=== PATIENT | female | born 1955 | race Caucasian/White ===

== ENCOUNTER → 2020-04-20 15:22 | Outpatient (CLI) | payer OTHER, SELFPAY ==
[2020-04-21 10:08] LABS: COVID19 Sendout Not Detected (Not Detect)
== END ==
PROVIDERS: Visit Provider Nurse Practitioner
DX: Z11.59 Encounter for screening for other viral diseases (principal)
CPT/HCPCS: 87635

== ENCOUNTER → 2022-02-14 12:41 | Outpatient (CLI) | payer MEDICARE, OTHER, SELFPAY | PROVIDERS: PCP Internal Medicine; Referring Provider Internal Medicine; Visit Provider Internal Medicine | DX: Z78.0 Asymptomatic menopausal state (principal); M85.89 Other specified disorders of bone density and structure, multiple sites | CPT/HCPCS: 77080 ==

== ENCOUNTER → 2022-03-01 17:34 | Outpatient (CLI) | payer MEDICARE, OTHER, SELFPAY ==
--- NOTE | 2022-03-01 | DI.RAD.S_ITS ---
PROCEDURE: XR ANKLE LT MIN 3V INDICATIONS: LEFT ANKLE PAIN TECHNIQUE: 3 views of the ankle were acquired. COMPARISON: None. FINDINGS: Bones: No fractures or dislocations. Ankle mortise is normally aligned. No suspicious bony lesions. Mild periarticular osteophyte formation at the tibiotalar joint. Soft tissues: No tibiotalar joint effusion. Achilles tendon appears normal. IMPRESSION: 1. Osteoarthritis. 2. No acute fracture. No osseous lesion. If symptoms and/or clinical suspicion for pathology persist, further assessment with repeat, or advanced imaging (e.g., CT, MRI, or bone scan) may be helpful for further assessment. Dictated by: Marko Hale M.D. on 03/02/2022 at 9:43 Approved by: Marko Hale M.D. on 03/02/2022 at 9:44
== END ==
PROVIDERS: PCP Internal Medicine; Referring Provider Internal Medicine; Visit Provider Internal Medicine
DX: M25.572 Pain in left ankle and joints of left foot (principal); M19.072 Primary osteoarthritis, left ankle and foot
CPT/HCPCS: 73610

== ENCOUNTER → 2022-03-17 11:16 | Outpatient (CLI) | payer MEDICARE, OTHER, SELFPAY ==
[2022-03-17 13:13] LABS: COVID19 -Nasal RAPID Negative (Negative)
== END ==
PROVIDERS: PCP Internal Medicine; Visit Provider Surgery
DX: Z20.822 Contact with and (suspected) exposure to COVID-19 (principal); Z01.812 Encounter for preprocedural laboratory examination
CPT/HCPCS: 87635; C9803

== ENCOUNTER 2022-03-20 13:10 | Day surgery (SDC) | payer MEDICARE, OTHER, SELFPAY ==
[2022-03-20 14:25] VITALS: BP 144/77; PULSE 52; RESP 16; TEMP 36.8; O2SAT 97; BMI 30.4
[2022-03-20] MEDS: SODIUM CHLORIDE 0.9% 1,000 ML 84 ML IV (14:35)
--- NOTE | 2022-03-20 14:46 | PM.HP.1 ---
History of Present Illness History of Present Illness Date Patient Seen: 03/20/22 Time Patient Seen: 14:46 Chief complaint: SDC Narrative: Dysphagia Patient History Family & Social History Social History: household members spouse Tobacco & Substance use: Smoking Status Never smoker alcohol intake current alcohol intake frequency 0-2 drinks per day Substance Use Type marijuana Meds Home Medications and Allergies Home Medications Medication Instructions Recorded Confirmed Type levothyroxine 50 mcg tablet 0.05 mg PO QDAY ##0 04/09/13 03/20/22 History (Synthroid) liothyronine 25 mcg tablet 25 mcg PO DAILY ##0 04/09/13 03/20/22 History (Cytomel) carbidopa 25 mg-levodopa 100 mg 25 - 100 tab PO Q4HR 03/20/22 03/20/22 History tablet carbidopa ER 25 mg-levodopa 100 mg 25 - 100 tab PO DAILY 03/20/22 03/20/22 History tablet,extended release entacapone 200 mg tablet 100 mg PO Q6HR 03/20/22 03/20/22 History rasagiline 1 mg tablet 1 mg PO DAILY 03/20/22 03/20/22 History Allergies Allergy/AdvReac Type Severity Reaction Status Date / Time No Known Drug Allergies Allergy Verified 03/20/22 14:07 Review of Systems Review of Systems ROS: Yes All systems reviewed with the patient and are negative except as otherwise documented Exam Vital Signs (past 8 hours): - 03/20/22 14:25 Temperature 98.3 F Pulse Rate 52 L Respiratory Rate 16 Blood Pressure 144/77 H Pulse Oximetry 97 Oxygen Delivery Method Room Air Oxygen Delivery Method Room Air Const General: cooperative HENMT Head: normal to inspection Eyes General: appearance normal, both eyes and all related structures Neck Neck: normal visual inspection Chest Chest: normal inspection of the chest Resp Effort & Inspection: normal respiratory effort Cardio Rate: regular rate GI Inspection: normal to inspection Skin General: no rashes or lesions noted Neuro General: patient alert and patient awake Extrem General: normal to inspection and no pedal edema Psych Appearance: grossly normal Assessment & Plan Assessment & Plan narrative: 66-year-old female with intermittent symptoms of dysphagia to pills. She has a personal history of esophageal ulceration. Diagnostic and potentially therapeutic EGD is pursued today. Time Spent With Patient Critical Care time: I spent a total of [] minutes of critical care time on this patient's care today; this time is exclusive of procedural time.
--- NOTE | 2022-03-20 14:47 | PM.PREOP ---
Pre-operative Note COVID-19 COVID-19 status: Negative Result date/Date tested (Pos, Neg/Pending): 04/17/22 Criteria for continued procedure: Possibility delay results in more complex future surgery or treatment Interval Note History & Physical reviewed/Exam performed by Physician: Yes Changes to H&P: Yes H&P completed within 30 days and has changed as indicated here:: Slightly worse dysphagia symptoms. ASA Class (for procedural sedation): II
--- NOTE | 2022-03-20 15:29 | PM.OP.EGD ---
Operative Date/Time/Diagnoses Date of procedure: 03/20/22 Time of procedure: 15:29 Pre-op diagnosis: Dysphagia Post-op diagnosis: same Procedure & Clinicians Study performed: EGD Same procedure as scheduled: Yes Indications: Dysphagia Surgeon: Dorian Palmer Procedure Notes SCOAP/Timeout: Done Procedure in detail: After the risks and benefits were explained, written and verbal informed consent was obtained. The patient was brought into the procedure room and placed into the left lateral decubitus position. Conscious sedation medication was applied as per nursing documentation. The scope was introduced into the mouth through the bite block and advanced under direct visualization to the 2nd portion of the duodenum. The scope was slowly withdrawn carefully examining the mucosa for any defects or lesions. Retroflexed views were accomplished in the stomach. The stomach was decompressed, the scope was then removed from the patient who tolerated the procedure well. Sedation minutes: 5 Specimen(s): none sent Complications: none Impression: 1. Duodenum: No significant mucosal pathology appreciated from the bulb through the 2nd portion. 2. Stomach: No ulcers no outlet obstruction no mass lesions. No significant mucosal pathology appreciated throughout. Retroflexed views of the LES disclosed a small sliding hiatal hernia. 3. Esophagus: The squamocolumnar junction correlated with the top of the gastric folds. Patient had a 2 cm sliding hiatal hernia. Inflammatory features were identified in linear fashion for about the last 5 cm of the esophagus. Right at the level of GE junction was evidence of LA grade C erosive esophagitis. No singular stricture no neoplastic features no Schatzki is ring evident. Endoscopic diagnosis 1. LA grade C erosive esophagitis 2. Sliding hiatal hernia Post-procedure Plan for aftercare: 1. The patient is encouraged to take omeprazole twice daily for the next 2 weeks then once daily thereafter. 2. Repeat EGD in approximately 8 weeks time to confirm complete mucosal healing Disposition: PACU
[2022-03-20 15:33] VITALS: BP 131/79; PULSE 50; RESP 14; TEMP 36.3; O2SAT 95
[2022-03-20 15:38] VITALS: BP 141/77; PULSE 50; RESP 17; TEMP 36.1; O2SAT 96
[2022-03-20 15:43] VITALS: BP 139/75; PULSE 51; RESP 18; TEMP 36.7; O2SAT 98
== END 2022-03-20 16:19 | disposition home or self-care (01) ==
PROVIDERS: PCP Internal Medicine; Referring Provider Internal Medicine Gastroenterology; Visit Provider Internal Medicine Gastroenterology
PROC: 0DJ08ZZ Inspection of Upper Intestinal Tract, Via Natural or Artificial Opening Endoscopic (ICD-10-PCS; CPT 43235; principal; 2022-03-20 15:00)
DX: K20.90 Esophagitis, unspecified without bleeding (principal); K44.9 Diaphragmatic hernia without obstruction or gangrene
CPT/HCPCS: 43235; J2704

== ENCOUNTER → 2022-05-16 11:56 | Outpatient (CLI) | payer MEDICARE, OTHER, SELFPAY ==
[2022-05-16 12:59] LABS: COVID19 -Nasal RAPID Negative (Negative)
== END ==
PROVIDERS: PCP Internal Medicine; Visit Provider Surgery
DX: Z20.822 Contact with and (suspected) exposure to COVID-19 (principal); Z01.812 Encounter for preprocedural laboratory examination
CPT/HCPCS: 87635; C9803

== ENCOUNTER 2022-05-17 12:47 | Day surgery (SDC) | payer MEDICARE, OTHER, SELFPAY ==
[2022-05-17] VITALS (7 sets, daily range): BP systolic 129–158; BP diastolic 74–88; PULSE 51–60; RESP 12–24; TEMP 36.4–36.8; O2SAT 93–100; BMI 29.2
--- NOTE | 2022-05-17 | PATH_ITS ---
[facility] Accession Number: [id number] . 01 Material submitted: . esophagus - MID ESOPHAGUS . 01 Diagnosis: Mid Esophagus, Biopsy: Squamous epithelium with no diagnostic abnormality. Intraepithelial eosinophils are not increased. Negative for dysplasia and malignancy. JN 05/19/2022 1407 Local . 01 Electronically signed: . Susan Garduno MD, Pathologist NPI- [id number] . 01 Gross description: . MID ESOPHAGUS: Received in formalin is 3 fragment(s) of heath, soft tissue measuring 0.1 x 0.1 x 0.1 cm to 0.3 x 0.2 x 0.2 cm submitted entirely in 1 cassette(s) /KJ 05/19/2022 0043 Local . 01 Pathologist provided ICD-10: K21.00 . 01 CPT . 975494 Performed at: [address] [facility] [address] [place] [address] [address], [place], [place] [id number] MD Shane Levine MD Phone: [phone]
--- NOTE | 2022-05-17 13:23 | PM.HP.1 ---
History of Present Illness History of Present Illness Date Patient Seen: 05/17/22 Time Patient Seen: 13:23 Chief complaint: [facility] [place] Narrative: Esophagitis. Here for the recheck. She is on pantoprazole once daily. Still having difficulties with pill induced dysphagia Patient History Family & Social History Social History: household members spouse Tobacco & Substance use: Smoking Status Never smoker alcohol intake current alcohol intake frequency 0-2 drinks per day Substance Use Type marijuana Meds Home Medications and Allergies Home Medications Medication Instructions Recorded Confirmed Type levothyroxine 50 mcg tablet 0.05 mg PO QDAY ##0 04/09/13 03/20/22 History (Synthroid) liothyronine 25 mcg tablet 25 mcg PO DAILY ##0 04/09/13 03/20/22 History (Cytomel) carbidopa 25 mg-levodopa 100 mg 25 - 100 tab PO Q4HR 03/20/22 03/20/22 History tablet carbidopa ER 25 mg-levodopa 100 mg 25 - 100 tab PO DAILY 03/20/22 03/20/22 History tablet,extended release entacapone 200 mg tablet 100 mg PO Q6HR 03/20/22 03/20/22 History rasagiline 1 mg tablet 1 mg PO DAILY 03/20/22 03/20/22 History Allergies Allergy/AdvReac Type Severity Reaction Status Date / Time No Known Drug Allergies Allergy Verified 03/20/22 14:07 Review of Systems Review of Systems ROS: Yes All systems reviewed with the patient and are negative except as otherwise documented Exam Const General: cooperative HENMT Head: normal to inspection Eyes General: appearance normal, both eyes and all related structures Neck Neck: normal visual inspection Chest Chest: normal inspection of the chest Resp Effort & Inspection: normal respiratory effort Cardio Rate: regular rate GI Inspection: normal to inspection Skin General: no rashes or lesions noted Neuro General: patient alert and patient awake Extrem General: normal to inspection and no pedal edema Psych Appearance: grossly normal Assessment & Plan Assessment & Plan narrative: 67-year-old female with dysphagia and LA grade C erosive esophagitis. Some of her symptoms persist despite proton pump inhibitor. Repeat EGD is pursued today to evaluate for mucosal healing. Time Spent With Patient Critical Care time: I spent a total of [] minutes of critical care time on this patient's care today; this time is exclusive of procedural time.
--- NOTE | 2022-05-17 13:24 | PM.PREOP ---
Pre-operative Note COVID-19 COVID-19 status: Negative Result date/Date tested (Pos, Neg/Pending): 05/16/22 Criteria for continued procedure: Possibility delay results in more complex future surgery or treatment Interval Note History & Physical reviewed/Exam performed by Physician: Yes Changes to H&P: No ASA Class (for procedural sedation): II
[2022-05-17] MEDS: SODIUM CHLORIDE 0.9% 1,000 ML 84 ML IV (13:30)
--- NOTE | 2022-05-17 14:11 | P.OP.EGD_ITS ---
Operative Date/Time/Diagnoses Date of procedure: 05/17/22 Time of procedure: 14:12 Pre-op diagnosis: LA grade C erosive esophagitis. Dysphagia to pills Post-op diagnosis: same Procedure & Clinicians Study performed: EGD with biopsies Indications: LA grade C erosive esophagitis. Dysphagia to pills. Surgeon: Dorian Palmer Procedure Notes SCOAP/Timeout: Done Procedure in detail: After the risks and benefits were explained, written and verbal informed consent was obtained. The patient was brought into the procedure room and placed into the left lateral decubitus position. Please see nurse cracker and cookie machine operator notes for sedation details. The scope was introduced into the mouth through the bite block and advanced under direct visualization to the 2nd portion of the duodenum. The scope was slowly withdrawn carefully examining the mucosa for any defects or lesions. Retroflexed views were accomplished in the stomach. The stomach was decompressed, the scope was then removed from the patient who tolerated the procedure well. Sedation minutes: 8 Complications: none Impression: 1. Duodenum: This was normal from the bulb through to the 2nd portion. 2. Stomach: No gross anomalies throughout. No outlet obstruction no ulcers no mass lesions. Retroflexed views of the LES disclosed a small sliding hiatal hernia. 3. Esophagus: There has been complete healing of the GE junction. No sign of any acute esophagitis at this time. No Schatzki's ring no stricture no mass lesion. The midesophagus was characterized by some subtle tightly grouped circumferential rings. In light of the ongoing symptoms I elected to take biopsies from mid esophagus for exclusion of eosinophilic infiltration. Endoscopic diagnosis 1. Healed esophagitis 2. Subtle sliding hiatal hernia 3. Subtle midesophageal rings-biopsied Post-procedure Plan for aftercare: 1. Await histopathology. 2. Continue once daily pantoprazole. 3. Use plenty of liquids with all supplements and pills. 4. Follow up GI clinic. Disposition: PACU
== END 2022-05-17 15:18 | disposition home or self-care (01) ==
PROVIDERS: PCP Internal Medicine; Referring Provider Internal Medicine Gastroenterology; Visit Provider Internal Medicine Gastroenterology
PROC: 0DJ08ZZ Inspection of Upper Intestinal Tract, Via Natural or Artificial Opening Endoscopic (ICD-10-PCS; CPT 43235; principal; 2022-05-17 14:00)
DX: Z87.19 Personal history of other diseases of the digestive system (principal); K44.9 Diaphragmatic hernia without obstruction or gangrene
CPT/HCPCS: 43239; J2704

== ENCOUNTER → 2022-10-16 15:35 | Outpatient (CLI) | payer MEDICARE, OTHER, SELFPAY ==
--- NOTE | 2022-10-16 | DI.MRI.S_ITS ---
PROCEDURE: MR ANKLE LT WO CON INDICATIONS: Stress fracture TECHNIQUE: Noncontrast sagittal T1 spin echo and T2 fast spin echo with fat saturation, axial proton density fast spin echo and T2 fast spin echo with fat saturation, coronal T1 spin echo and T2 fast spin echo with fat saturation through the ankle/hindfoot. COMPARISON: None. FINDINGS: Image quality: Excellent. Bones and joints: Osteoarthritic changes are noted throughout midfoot and hindfoot joints most notably involving tibiotalar joint with joint space narrowing, subchondral sclerosis and multiple osteochondral injuries involving medial and lateral weight-bearing portion of talar dome and adjacent anterior and posterior portion of distal tibial plafond. 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 Mild edema is also noted along medial periphery of talus without fracture line. There is small amount of tibiotalar joint effusion, no gross loose bodies. No acute fracture or dislocation. No evidence of stress fracture is seen. Medial structures: The posterior tibialis tendon is thickened at the level of talonavicular joint. The flexor digitorum longus, and flexor hallucis longus tendons are intact. Small amount of fluid distending flexor tendon sheath is seen. The posterior tibial neurovascular bundle appears normal within the tarsal tunnel, without extrinsic mass effect. The deltoid ligament and spring ligament are thickened. Lateral structures: The anterior talofibular, calcaneofibular, and posterior talofibular ligaments appear thickened. More superiorly, the anterior and posterior tibiofibular ligaments also appears thickened. The tibiofibular syndesmosis is normal in width at 2 mm or less. The peroneus longus and brevis tendons demonstrate normal location and morphology. Adjacent bony peroneal tubercle and retrotrochlear prominence are normal in size. The sinus tarsi demonstrates normal fatty signal, without edema, fibrosis, or cyst formation. Visualized sinus tarsi components (cervical ligament, interosseous talocalcaneal ligament, roots of the inferior extensor retinaculum) appear normal. The calcaneonavicular and calcaneocuboid components of the bifurcate ligament appear intact. The dorsal calcaneocuboid ligament appears intact. Anterior structures: The tibialis anterior, extensor hallucis longus, and extensor digitorum longus tendons appear intact. The dorsal talonavicular ligament appears intact. Posterior and plantar structures: Achilles tendon is intact. Medial and lateral bands of the plantar fascia are of normal thickness. No abductor digiti quinti muscle atrophy to suggest Estrada neuropathy. IMPRESSION: 1. [id number] midfoot and hindfoot joint osteoarthritis most notably in tibiotalar joint as above. No acute fracture or dislocation. Small osteochondral injuries involving distal tibial plafond and adjacent talar dome. 2. Suggestion of old injury involving medial malleolus with fragmented appearance and marrow edema concerning for pseudoarthrosis. Contusion versus changes related to osteoarthritis also seen in adjacent medial periphery of talus. 3. Small to moderate amount of tibiotalar joint effusion, no gross loose bodies. 4. Tendinosis involving posterior tibialis tendon at the level of talonavicular joint. Low-grade tenosynovitis involving flexor tendons. 5. Low-grade medial and lateral ankle ligament sprain. No full-thickness ligament rupture. Dictated by: Dionte Dickens M.D. on 10/16/2022 at 17:33 Approved by: Dionte Dickens M.D. on 10/16/2022 at 17:39
== END ==
PROVIDERS: PCP Internal Medicine; Referring Provider Orthopaedic Surgery Foot and Ankle Surgery; Visit Provider Orthopaedic Surgery Foot and Ankle Surgery
DX: S93.492A Sprain of other ligament of left ankle, initial encounter (principal); M84.30XA Stress fracture, unspecified site, initial encounter for fracture; M19.072 Primary osteoarthritis, left ankle and foot; M25.472 Effusion, left ankle
CPT/HCPCS: 73721

== ENCOUNTER → 2023-01-01 10:48 | Outpatient (CLI) | payer MEDICARE, OTHER, SELFPAY ==
--- NOTE | 2023-01-01 | DI.RAD.S_ITS ---
PROCEDURE: XR RIBS LT MIN 3V W CXR1V INDICATIONS: Pleurodynia TECHNIQUE: 2 views of the left ribs were acquired, along with a single view chest. COMPARISON: None. FINDINGS: Surgical changes and devices: None. Bones and chest wall: Mildly displaced fractures of the left posterolateral 6th, 7th, and 8th ribs. No suspicious bony lesions. Overlying soft tissues appear unremarkable. Lungs and pleura: No pleural effusions or pneumothorax. Lungs appear clear. Mediastinum: Mediastinal contours appear normal. Heart size is normal. IMPRESSION: Left rib fractures as above. Dictated by: Marko Hale M.D. on 01/01/2023 at 14:03 Transcribed by: XANDER on 01/01/2023 at 14:04 Approved by: Marko Hale M.D. on 01/01/2023 at 16:22
== END ==
PROVIDERS: PCP Internal Medicine; Referring Provider Internal Medicine; Visit Provider Internal Medicine
DX: S22.42XA Multiple fractures of ribs, left side, initial encounter for closed fracture (principal); R07.81 Pleurodynia
CPT/HCPCS: 71101

== ENCOUNTER → 2023-01-18 14:52 | Outpatient (CLI) | payer MEDICARE, OTHER, SELFPAY ==
--- NOTE | 2023-01-18 14:54 | DI.RAD.S_ITS ---
PROCEDURE: XR RIBS LT MIN 3V W CXR1V INDICATIONS: Rib pain TECHNIQUE: Two views of the left ribs were acquired, along with a single view chest. COMPARISON: [facility], CR, XR RIBS LT MIN 3V W CXR1V, 01/01/2023, 10:58. FINDINGS: Surgical changes and devices: None. Bones and chest wall: Minimally displaced left lateral 6th, 7th, and 8th rib fractures are again seen. There is slight callus formation present.. No suspicious bony lesions. Overlying soft tissues appear unremarkable. Lungs and pleura: No pleural effusions or pneumothorax. Lungs appear clear. Mediastinum: Mediastinal contours appear normal. Heart size is normal. IMPRESSION: 1. Slight interval healing of known left-sided rib fractures. 2. No development of left pneumothorax or pleural effusion. Dictated by: Julia Bourgeois M.D. on 01/18/2023 at 17:01 Approved by: Julia Bourgeois M.D. on 01/18/2023 at 17:02
== END ==
PROVIDERS: PCP Internal Medicine; Referring Provider Nurse Practitioner Family; Visit Provider Nurse Practitioner Family
DX: S22.42XD Multiple fractures of ribs, left side, subsequent encounter for fracture with routine healing (principal); R07.81 Pleurodynia; X58.XXXD Exposure to other specified factors, subsequent encounter
CPT/HCPCS: 71101

== ENCOUNTER → 2023-05-11 15:04 | Outpatient (CLI) | payer MEDICARE, OTHER, SELFPAY ==
--- NOTE | 2023-05-11 15:06 | DI.RAD.S_ITS ---
PROCEDURE: XR CHEST 2V INDICATIONS: Wheeze TECHNIQUE: 2 views of the chest were acquired. COMPARISON: None. FINDINGS: Surgical changes and devices: None. Lungs and pleura: Lungs are clear. No pleural effusions or pneumothorax. Peribronchial cuffing Mediastinum: Mediastinal contours are normal. Heart size is normal. Bones and chest wall: No suspicious bony abnormalities. Soft tissues appear unremarkable. IMPRESSION: Peribronchial cuffing, typically indicating infectious or inflammatory bronchitis. Dictated by: González Jimenez M.D. on 05/11/2023 at 16:44 Approved by: González Jimenez M.D. on 05/11/2023 at 16:44
== END ==
PROVIDERS: PCP Internal Medicine; Referring Provider Internal Medicine; Visit Provider Internal Medicine
DX: R06.2 Wheezing (principal)
CPT/HCPCS: 71046

== ENCOUNTER → 2023-11-28 15:59 | Outpatient (CLI) | payer MEDICARE, OTHER, SELFPAY ==
--- NOTE | 2023-11-28 | DI.RAD.S_ITS ---
PROCEDURE: XR FOOT RT MIN 3V INDICATIONS: R FOOT PAIN TECHNIQUE: 3 views of the foot were acquired. COMPARISON: None. FINDINGS: Bones: No fractures or dislocations. Screw within the 2nd metatarsal head. Small lucency is seen surrounding the screw. Degenerative changes of the interphalangeal joints. Moderate degenerative changes of the 1st MTP. Partial ankylosis of the 2nd proximal interphalangeal joint. No suspicious bony lesions. Plantar calcaneal enthesophyte. Decreased osseous mineralization. Soft tissues: No tibiotalar joint effusion. Achilles tendon appears normal. IMPRESSION: 1. Screw in the 2nd metatarsal head with small surrounding lucency. Infection or loosening is not excluded and clinical correlation is recommended. 2. Degenerative changes of the foot. 3. No acute osseous abnormalities. Dictated by: Jarvis Kaba M.D. on 11/28/2023 at 17:09 Approved by: Jarvis Kaba M.D. on 11/28/2023 at 17:11
== END ==
PROVIDERS: PCP Internal Medicine; Referring Provider Internal Medicine; Visit Provider Internal Medicine
DX: M79.671 Pain in right foot (principal)
CPT/HCPCS: 73630

== ENCOUNTER → 2023-12-07 10:24 | Outpatient (CLI) | payer MEDICARE, OTHER, SELFPAY ==
--- NOTE | 2023-12-07 10:25 | DI.ECHO.S_ITS ---
[facility] : : [address] : : [place] : : [id number] : : Phone: [phone] Echocardiogram Report + + :Name: ASHLEIGH GARCÍA Study Date: 12/07/2023 Height: 64 in : [facility] Weight: 175 lb : : Gender: Female BSA: 1.8 m2 : :: 1955 Age: 68 yrs BP: 148/89 mmHg: :Reason For Study: EVALUATE EF : :Ordering Physician: JAISON, : :GAY Performed By: Dinh Alva : :Referring: GAY BLACKWOOD : + + Interpretation Summary Normal sinus rhythm. Normal LV size and mildly increased wall thickness. Normal wall motion and LV systolic function. Ejection fraction is 65-70%. Stage I diastolic dysfunction. Mild left atrial enlargement. Otherwise normal chamber sizes. Aortic sclerosis without stenosis. No prior study available for comparison. Procedure: A two-dimensional transthoracic echocardiogram with color flow and Doppler was performed. The study quality was technically adequate. There is no prior echocardiogram noted for this patient. The patient was in normal sinus rhythm during the exam. The heart rate ranged between 55-64 bpm during the study. Left Ventricle: The left ventricle is normal in size. There is mild concentric left ventricular hypertrophy. The ejection fraction is estimated to be 65-70%. Right Ventricle: The right ventricle is normal in size and function. The right ventricular systolic function is normal. Atria: The left atrium is mildly dilated. There has been no significant change since the previous study. The interatrial septum grossly appears intact with no obvious evidence for an atrial septal defect. Mitral Valve: The mitral valve is normal in structure and function. There is no mitral valve stenosis. There is trace mitral regurgitation. Aortic Valve: The aortic valve is trileaflet. There is no aortic valve stenosis. No aortic regurgitation is present. Tricuspid Valve: The tricuspid valve is normal in structure and function. There has been no significant change since the previous study. There is mild tricuspid regurgitation. The right ventricular systolic pressure is estimated to be at least 30 mmHg based on an estimated right atrial pressure of 3 mm Hg. Pulmonic Valve: The pulmonic valve is not well visualized. There is no pulmonic valvular stenosis. There is a trace or physiologic amount of pulmonic regurgitation. Great Vessels: The aortic root is normal size. The dimensions of the ascending aorta are normal. The IVC is of normal diameter and collapses greater than 50% with a sniff. This suggests a low right atrial pressure of 3 mm Hg. Pericardium/ Pleura There is no pericardial effusion. There is no pleural effusion. MMode/2D Measurements & Calculations LVIDd: 4.6 cm LVOT diam: 2.0 cm LVIDs: 2.8 cm Ao root diam: 3.2 cm FS: 38.0 % asc Aorta Diam: 3.3 cm IVSd: 1.3 cm Ao Arch Diam (Prox Trans): 3.1 cm LVPWd: 1.2 cm LV valverde. diameter/BSA (cm/m^2): 2.5 LV sys. diameter/BSA (cm/m^2): 1.5 LA A2 area: 21.2 cm2 RA long axis: 4.5 cm LA A4 area: 24.8 cm2 RA area: 14.8 cm2 LA length (vol): 5.9 cm RA vol: 41.5 ml LA vol: 76.0 ml RA : 22.4 ml/m2 LA vol index: 41.1 ml/m2 IVC diam: 1.8 cm RVD1 (basal): 3.7 cm RVD2 (mid): 3.8 cm TAPSE: 3.1 cm Doppler Measurements & Calculations Ao V2 max: 188.0 cm/sec LVOT Max Ammon: 145.1 cm/sec Ao V2 mean: 132.6 cm/sec LV V1 max P.4 mmHg Ao max P.1 mmHg LV V1 VTI: 35.9 cm Ao mean P.0 mmHg CAROLE(I,D): 2.4 cm2 Ao V2 VTI: 47.4 cm CAROLE(V,D): 2.4 cm2 sev ratio: 0.76 CAROLE indexed to BSA (cm^2/m^2): 1.3 MV E max ammon: 84.7 cm/sec TR max ammon: 259.8 cm/sec MV A max ammon: 101.4 cm/sec TR max P.0 mmHg MV E/A: 0.84 PA V2 max: 122.3 cm/sec Med Peak E' Ammon: 9.1 cm/sec PA V2 mean: 84.5 cm/sec E/E' med: 9.3 PA mean P.2 mmHg Lat Peak E' Ammon: 8.7 cm/sec PA pr(Accel): 36.2 mmHg E/E' lat: 9.7 E/e' average: 9.5 MV dec time: 0.18 sec [facility] 112.4 ml Electronically signed by: Dayana Mancia M.D. on [place] Physician:12/07/2023 05:51 PM
== END ==
PROVIDERS: PCP Internal Medicine; Referring Provider Internal Medicine; Visit Provider Internal Medicine
DX: R06.00 Dyspnea, unspecified (principal); R60.9 Edema, unspecified; I07.1 Rheumatic tricuspid insufficiency
CPT/HCPCS: 93306

== ENCOUNTER → 2024-03-11 14:56 | Outpatient (CLI) | payer MEDICARE, OTHER, SELFPAY ==
--- NOTE | 2024-03-11 14:59 | DI.RAD.S_ITS ---
PROCEDURE: XR HIP W PEL IF DONE ELBERT MIN 4V INDICATIONS: Sacrococcygeal disorders, not elsewhere classified TECHNIQUE: AP pelvis with lateral view(s) of the bilateral hip(s). COMPARISON: None. FINDINGS: Bones: Moderate bilateral hip joint osteoarthritic changes are seen with superior joint space narrowing, subchondral sclerosis and marginal osteophyte formation. No fracture or dislocation. No evidence of avascular necrosis of femoral heads. Degenerative disc disease in visualized lower lumbar spine is seen. Pelvic ring appears intact. No suspicious bony lesions. Soft tissues: The visualized bowel gas pattern is normal. No suspicious soft tissue calcifications. IMPRESSION: Symmetric appearing moderate bilateral hip joint osteoarthritis. No pelvic or hip fracture. No evidence of avascular necrosis. Dictated by: Dionte Dickens M.D. on 03/12/2024 at 9:51 Approved by: Dionte Dickens M.D. on 03/12/2024 at 9:58
== END ==
LOC: RAD 14:57
PROVIDERS: PCP Internal Medicine; Referring Provider Internal Medicine; Visit Provider Internal Medicine
DX: M16.0 Bilateral primary osteoarthritis of hip (principal); M53.3 Sacrococcygeal disorders, not elsewhere classified
CPT/HCPCS: 73522

== ENCOUNTER → 2024-07-31 11:37 | Outpatient (CLI) | payer MEDICARE, OTHER, SELFPAY ==
--- NOTE | 2024-07-31 | DI.RAD.S_ITS ---
PROCEDURE: XR DEXA AXIAL SKELETON INDICATIONS: other specified disorders of bone density COMPARISON: [facility], CR, XR DEXA AXIAL SKELETON, 02/14/2022, 13:10. FINDINGS: Lumbar Spine: Bone mineral density 1.052 g/cm2, T score 0.0, previously -0.1. Left Hip: Bone mineral density is 0.836 g/cm2, T score -0.9, previously -0.8. Left Femoral Neck: Bone mineral density 0.665 g/cm2, T score -1.7, previously -1.4. Right Hip: Bone mineral density is 0.698 g/cm2, T score -2.0, previously -1.7. Right Femoral Neck: Bone mineral density is 0.582 g/cm2, T score -2.4, previously -1.4. Fracture Risk Calculation (when applicable): 10-year fracture risk of a major osteoporotic fracture 16 percent and of a hip fracture 2.1 percent. (T score greater or equal to -1.0 to: NORMAL) (T score from -1.1 to -2.4: OSTEOPENIA) (T score less than or equal to -2.5: OSTEOPOROSIS) IMPRESSION: Osteopenia Follow-up guidelines as follows: Osteoporosis: Consider a repeat DEXA and Vertebral Fracture Assessment (VFA) exam in 2 years or sooner if medically necessary, to reassess this patient's status. Osteopenia: Consider a repeat DEXA in 2-3 years to reassess this patient's status, or if there is a new clinical indication. Normal: Consider a repeat DEXA in 5 years or sooner, or if there is a new clinical indication. All treatment decisions require clinical judgment and consideration of individual patient factors, including patient preferences, comorbidities, previous drug use, risk factors not captured in the FRAX model (e.g., frailty, falls, vitamin D deficiency, increased bone turnover, interval significant decline in bone density ) and possible under- or over-estimation of fracture risk by FRAX. In addition, the NOF Guide recommends that FDA-approved medical therapies be considered in postmenopausal women and men age >= 50 years with a: * Hip or vertebral (clinical or morphometric) fracture * T-score of <=-2.5 at the spine or hip * Ten-year fracture probability by FRAX of >= 3% for hip fracture or >=20% for major osteoporotic fracture. People with diagnosed cases of osteoporosis or at high risk for fracture should have regular bone mineral density tests. For patients eligible for Medicare, routine testing is allowed once every 2 years. The testing frequency can be increased to one year for patients who have rapidly progressing disease, those who are receiving or discontinuing medical therapy to restore bone mass, or have additional risk factors. Approved by: Joseph Darling M.D. on 08/01/2024 at 10:35
== END ==
PROVIDERS: PCP Internal Medicine
DX: M85.89 Other specified disorders of bone density and structure, multiple sites (principal)
CPT/HCPCS: 77080

== ENCOUNTER → 2024-10-05 11:38 | Outpatient (CLI) | payer MEDICARE, OTHER, SELFPAY ==
--- NOTE | 2024-10-05 11:41 | DI.CT.S_ITS ---
PROCEDURE: CT HEAD/BRAIN WO CON INDICATIONS: FACIAL DROOP TECHNIQUE: Noncontrast 4.5 mm thick angled axial sections acquired from the foramen magnum to the vertex, with coronal and sagittal reformats. For radiation dose reduction, the following was used: automated exposure control, adjustment of mA and/or kV according to patient size. COMPARISON: None. FINDINGS: Image quality: Diagnostic. CSF spaces: Basal cisterns are patent. No extra-axial fluid collections. The ventricles are symmetric in size and shape. Brain: No intracranial bleeds or masses. There is mild cerebral volume loss for age, with resultant ventricular and sulcal prominence. There are mild periventricular and deep white matter chronic small vessel ischemic changes. Skull and face: Calvarium and visualized facial bones appear intact, without suspicious lesions. Sinuses: Visualized sinuses and mastoids are clear. Prior maxillary sinus surgeries. IMPRESSION: No CT evidence of acute intracranial process. Mild microvascular ischemic changes. Consider MR imaging to detect occult white matter infarcts. Dictated by: Julia Bourgeois M.D. on 10/08/2024 at 12:46 Approved by: Julia Bourgeois M.D. on 10/08/2024 at 12:49
== END ==
PROVIDERS: PCP Internal Medicine; Referring Provider Physician Assistant; Visit Provider Physician Assistant
DX: R29.810 Facial weakness (principal)
CPT/HCPCS: 70450

== ENCOUNTER → 2024-11-13 14:54 | Outpatient (CLI) | payer MEDICARE, OTHER, SELFPAY ==
--- NOTE | 2024-11-13 14:58 | DI.RAD.S_ITS ---
PROCEDURE: XR CHEST 2V INDICATIONS: COUGH TECHNIQUE: 2 views of the chest were acquired. COMPARISON: [facility], CR, XR CHEST 2V, 05/11/2023, 15:12. FINDINGS: Surgical changes and devices: None. Lungs and pleura: Lungs are clear. No pleural effusions or pneumothorax. Mediastinum: Mediastinal contours are normal. Heart size is normal. Bones and chest wall: No suspicious bony abnormalities. Soft tissues appear unremarkable. IMPRESSION: No acute cardiopulmonary abnormality is seen. Dictated by: Anthony Fang M.D. on 11/13/2024 at 17:21 Approved by: Anthony Fang M.D. on 11/13/2024 at 17:21
== END ==
PROVIDERS: PCP Internal Medicine; Referring Provider Internal Medicine; Visit Provider Internal Medicine
DX: R05.9 Cough, unspecified (principal)
CPT/HCPCS: 71046

== ENCOUNTER 2025-01-12 13:42 | Emergency (ER) | payer MEDICARE, OTHER, SELFPAY ==
[2025-01-12] VITALS (8 sets, daily range): BP systolic 155–176; BP diastolic 80–96; PULSE 60–68; RESP 16–18; TEMP 36.6–37; O2SAT 96–98; BMI 29.2
--- NOTE | 2025-01-12 14:01 | EKG_ITS ---
[address] [address] Test Date: 2025-01-12 Pat Name: Bushra Mendosa Department: Room: Gender: Female Refrigeration Tech: : [id number] Requested By: Order Number: [id number] Reading MD: Zana Knight Measurements Intervals Clover Rate: 68 P: 33 CO: 150 QRS: -11 QRSD: 74 T: 9 QT: 394 QTc: 418 Interpretive Statements Normal sinus rhythm Cannot rule out Anterior infarct , age undetermined Electronically Signed On 01-12-2025 15:32:17 PDT by Zana Knight
--- NOTE | 2025-01-12 14:16 | DI.CT.S_ITS ---
PROCEDURE: CT CHEST WO CON INDICATIONS: fall TECHNIQUE: Noncontrast 5 mm thick sections acquired from the pulmonary apices to the posterior costophrenic angles. 1 mm lung window, 5 mm thick coronal and sagittal and 7 mm axial MIP reformats were then acquired. For radiation dose reduction, the following was used: automated exposure control, adjustment of mA and/or kV according to patient size. COMPARISON: [facility], CR, XR CHEST 2V, 11/13/2024, 14:11. FINDINGS: Image quality: Diagnostic. Lower Neck: No enlarged lymph nodes. Thyroid: No thyroid nodules which require sonographic follow up, per consensus guidelines. Axillae: No enlarged lymph nodes. Chest Wall: Unremarkable. Bones: Minimally displaced fracture involving the upper third of the sternum small of the sternomanubrial joint. Mild adjacent soft tissue edema. Lungs and Pleura: No pneumothorax or pleural effusions. No consolidation or suspicious nodules. Heart: Heart size is normal. No pericardial effusion. Thoracic Vessels: The aorta and pulmonary arteries demonstrate normal size. Mediastinum and Shazia: No enlarged lymph nodes. Esophagus: No wall thickening. No hiatal hernia. Upper Abdomen: Visualized upper abdomen solid organs and bowel loops appear normal. IMPRESSION: Minimally displaced fracture of the sternum just below the sternomanubrial joint with mild surrounding edema.. Approved by: Son Cabello M.D. on 01/12/2025 at 13:36
--- NOTE | 2025-01-12 14:52 | DI.RAD.S_ITS ---
PROCEDURE: XR CHEST 2V INDICATIONS: ?sternal fracture TECHNIQUE: 2 views of the chest were acquired. COMPARISON: [facility], CT, CT CHEST WO CON, 01/12/2025, 14:15. [facility], CR, XR CHEST 2V, 11/13/2024, 14:11. [facility], CR, XR CHEST 2V, 05/11/2023, 15:12. FINDINGS: Surgical changes and devices: None. Lungs and pleura: Lungs are clear. No pleural effusions or pneumothorax. Mediastinum: Mediastinal contours are normal. Heart size is normal. Bones and chest wall: Minimally displaced sternal fracture below level of the sternomanubrial joint, better seen on CT from earlier the same day. IMPRESSION: Minimally displaced sternal fracture is better seen on the recent prior CT. Approved by: Son Cabello M.D. on 01/12/2025 at 14:30
--- NOTE | 2025-01-12 15:08 | ED_ITS ---
HPI - Chest Pain <Omega Hodges PA-C - Last Filed: 01/12/25 18:52> General Chief Complaint: Chest Pain Stated Complaint: chest pain from fall Time Seen by Provider: 01/12/25 14:02 History of Present Illness HPI narrative: 69-year-old female with past medical history hypertension, Parkinson's disease presents to the ED with 2 weeks of sternal pain. Patient states that she suffered a mechanical fall 2 weeks ago, tripped over her right foot, fell onto the uneven grass and struck her chest. Patient is complaining of worsening sternal pain over the last 2 weeks, worsened with coughing and deep breathing. No shortness of breath, fever, chills, nausea, vomiting. Related Data Home Medications Medication Instructions Recorded Confirmed levothyroxine 50 mcg tablet 0.05 mg PO QDAY ##0 04/09/13 05/07/24 (Synthroid) liothyronine 25 mcg tablet 25 mcg PO DAILY ##0 04/09/13 05/07/24 (Cytomel) carbidopa 25 mg-levodopa 100 mg 25 - 100 tab PO Q4HR 03/20/22 04/17/24 tablet carbidopa ER 25 mg-levodopa 100 mg 25 - 100 tab PO DAILY 03/20/22 04/17/24 tablet,extended release ascorbic acid (vitamin C) 100 mg 100 mg PO DAILY 04/17/24 04/17/24 tablet calcium carbonate (Calcium Antacid) 400 mg PO DAILY 04/17/24 04/17/24 cholecalciferol (vitamin D3) 25 25 mcg PO DAILY 04/17/24 04/17/24 mcg (1,000 unit) capsule coenzyme Q10 200 mg capsule 200 mg PO DAILY 04/17/24 04/17/24 cyanocobalamin (vitamin B-12) 1,000 mcg IM QWEEK 04/17/24 04/17/24 1,000 mcg/mL injection solution folic acid-vit B6-vit B12 0.8 1 tab PO DAILY 04/17/24 05/07/24 mg-50 mg-100 mcg tablet (Homocysteine Formula) glutathione 500 mg capsule mg PO 04/17/24 05/07/24 melatonin 3 mg capsule 3 mg PO BEDTIME PRN 04/17/24 05/07/24 omega-3 fatty acids 1,000 mg 1,000 mg PO DAILY 04/17/24 05/07/24 capsule turmeric root extract 500 mg 500 mg PO DAILY 04/17/24 05/07/24 capsule Previous Rx's Medication Instructions Recorded vibegron 75 mg tablet (Gemtesa) 75 mg PO DAILY #30 tabs 05/07/24 Allergies Allergy/AdvReac Type Severity Reaction Status Date / Time No Known Drug Allergies Allergy Verified 05/07/24 13:12 Review of Systems <Omega Hodges PA-C - Last Filed: 01/12/25 18:52> Constitutional Constitutional: Denies chills, Denies fatigue, Denies fever(s), Denies frequent falls, Denies lethargy and Denies weakness Eyes Eyes: Denies change in vision, Denies eye discharge, Denies irritation and Denies loss of vision ENT Ears, Nose, Mouth, and Throat: Denies change in voice, Denies dizziness, Denies neck pain, Denies sore throat and Denies throat swelling Cardiovascular Cardiovascular: Reports chest pain, Denies irregular heart rhythm, Denies lightheadedness, Denies palpitations, Denies dyspnea, Denies dyspnea on exertion and Denies orthopnea Respiratory Respiratory: Denies cough, Denies dyspnea, Denies dyspnea on exertion and Denies wheezing Gastrointestinal Gastrointestinal: Denies abdominal pain, Denies change in bowel habits, Denies diarrhea, Denies nausea and Denies vomiting Musculoskeletal Musculoskeletal: Denies neck pain and Denies numbness Integumentary/Breasts Skin/Breast: Denies pruritus, Denies erythema, Denies rash and Denies wounds Neurologic Neurologic: Denies behavioral changes, Denies confusion, Denies dizziness, Denies frequent falls, Denies loss of vision, Denies numbness and Denies weakness Psychiatric Psychiatric: Denies anxiety, Denies behavioral changes, Denies confusion, Denies depression, Denies homicidal ideation and Denies suicidal ideation Endocrine Endocrine: Denies fatigue, Denies flushing and Denies palpitations Hematologic/Lymphatic Hematologic/Lymphatic: Denies easy bruising Allergic/Immunologic Allergic/Immunologic: Denies urticaria, Denies throat swelling and Denies wheezing Patient History <Omega Hodges PA-C - Last Filed: 01/12/25 18:52> Medical History Constipation Secondhand smoke exposure Urge incontinence Hx of osteoarthritis History of hypertension Hx of hypercholesterolemia Hx of gastroesophageal reflux (GERD) History of depression Personal history of skin cancer History of arthritis GERD (gastroesophageal reflux disease) Erosive esophagitis Hypothyroidism Parkinson disease Surgical History Hx of breast biopsy History of removal of ovarian cyst Family History Mother Blood disease Cancer Thyroid disorder Sister Cancer Father CVA (cerebral vascular accident) CAD (coronary artery disease) Diabetes mellitus Hyperlipidemia Hypertension Evaluation of hearing impairment Social History marital status: number of children: 1 household members: spouse alcohol intake: former caffeine: Yes Type(s) of exercise: walking and bicycling frequency: 5-6 times per week duration: 60-90 minutes/day alcohol intake frequency: 0-2 drinks per day Exam <Omega Hodges PA-C - Last Filed: 01/12/25 18:52> Narrative Exam Narrative: Const General:?cooperative, healthy appearing and comfortable [facility] Head:?normal to inspection Ears:?hearing grossly normal bilaterally Nose:?external nose normal Face and sinus:?normal facial exam and sinuses nontender Mouth:?oral mucosae normal Throat:?posterior oropharynx normal Eyes General:?appearance normal, both eyes and all related structures Neck Neck:?normal visual inspection and no lymphadenopathy noted Resp Effort & Inspection:?normal respiratory effort Auscultation:?clear to auscultation bilaterally Cardio Rate:?regular rate Rhythm:?regular rhythm There is swelling and tenderness to palpation of the sternal region just below the sternomanubrial joint. No bruising. Neuro General:?patient alert, patient awake and patient oriented x3 Initial Vital Signs Initial Vital Signs: Vital Signs Temperature 98.6 F 01/12/25 13:51 Pulse Rate 68 01/12/25 13:51 Respiratory Rate 16 01/12/25 13:51 Blood Pressure 155/80 H 01/12/25 13:51 Pulse Oximetry 98 01/12/25 13:51 Oxygen Delivery Method Room Air 01/12/25 13:51 <Cooper Pryor MD - Last Filed: 01/12/25 18:56> Initial Vital Signs Initial Vital Signs: Vital Signs Temperature 98.6 F 01/12/25 13:51 Pulse Rate 68 01/12/25 13:51 Respiratory Rate 16 01/12/25 13:51 Blood Pressure 155/80 H 01/12/25 13:51 Pulse Oximetry 98 01/12/25 13:51 Oxygen Delivery Method Room Air 01/12/25 13:51 Course <Omega Hodges PA-C - Last Filed: 01/12/25 18:52> Orders Ordered: ED Orders 01/12/25 13:55 EKG-12 Lead Stat 01/12/25 14:16 CT chest wo con Stat 01/12/25 14:52 CXR [XR chest 2V] Stat 01/12/25 15:30 BNP [NT-proBNP (BNP-Adult 18+)] Stat CBC Auto Diff [Complete Blood Count AUTO DIFF] Stat CMP [Comprehensive Metabolic Panel] Stat PT [Prothrombin Time INR] Stat PTT [PTT Partial Thromboplastin Ki] Stat Troponin & CK Cardiac Panel Stat Discontinued Medications Acetaminophen (Acetaminophen 325 Mg Tablet) 975 mg PO NOW ONE Stop: 01/12/25 15:08 Last Admin: 01/12/25 15:11 Dose: 975 mg Documented By: XIOMARA Ketorolac Tromethamine (Ketorolac 30 Mg/Ml Vial) 30 mg IV NOW ONE Stop: 01/12/25 15:08 Last Admin: 01/12/25 15:37 Dose: 30 mg Documented By: XIOMARA Vital Signs Vital signs: Vital Signs - 8 hr 01/12/25 13:51 01/12/25 15:41 01/12/25 16:00 Temperature 98.6 F Pulse Rate 68 61 61 Respiratory Rate 16 18 18 Blood Pressure 155/80 H 157/80 H 167/87 H Pulse Oximetry 98 98 98 Oxygen Delivery Method Room Air Room Air Room Air 01/12/25 16:30 01/12/25 17:00 01/12/25 17:30 Temperature Pulse Rate 60 60 Respiratory Rate 18 16 18 Blood Pressure 165/96 H 155/87 H 176/94 H Pulse Oximetry 98 97 96 Oxygen Delivery Method Room Air Room Air Room Air <Cooper Pryor MD - Last Filed: 01/12/25 18:56> Orders Ordered: ED Orders 01/12/25 13:55 EKG-12 Lead Stat 01/12/25 14:16 CT chest wo con Stat 01/12/25 14:52 CXR [XR chest 2V] Stat 01/12/25 15:30 BNP [NT-proBNP (BNP-Adult 18+)] Stat CBC Auto Diff [Complete Blood Count AUTO DIFF] Stat CMP [Comprehensive Metabolic Panel] Stat PT [Prothrombin Time INR] Stat PTT [PTT Partial Thromboplastin Ki] Stat Troponin & CK Cardiac Panel Stat Discontinued Medications Acetaminophen (Acetaminophen 325 Mg Tablet) 975 mg PO NOW ONE Stop: 01/12/25 15:08 Last Admin: 01/12/25 15:11 Dose: 975 mg Documented By: XIOMARA Ketorolac Tromethamine (Ketorolac 30 Mg/Ml Vial) 30 mg IV NOW ONE Stop: 01/12/25 15:08 Last Admin: 01/12/25 15:37 Dose: 30 mg Documented By: XIOMARA Vital Signs Vital signs: Vital Signs - 8 hr 01/12/25 13:51 01/12/25 15:41 01/12/25 16:00 Temperature 98.6 F Pulse Rate 68 61 61 Respiratory Rate 16 18 18 Blood Pressure 155/80 H 157/80 H 167/87 H Pulse Oximetry 98 98 98 Oxygen Delivery Method Room Air Room Air Room Air 01/12/25 16:30 01/12/25 17:00 01/12/25 17:30 Temperature Pulse Rate 60 60 Respiratory Rate 18 16 18 Blood Pressure 165/96 H 155/87 H 176/94 H Pulse Oximetry 98 97 96 Oxygen Delivery Method Room Air Room Air Room Air MDM - Chest Pain <Omega Hodges PA-C - Last Filed: 01/12/25 18:52> Lab Data 01/12/25 15:30 01/12/25 15:30 Labs: Lab Results 01/12/25 Range/Units 15:30 WBC 6.8 (4.5-11.0) X10^3/uL RBC 4.68 (4.0-5.2) X10^6/uL Hgb 14.2 (12.0-16.0) g/dL Hct 42.5 (36-46) % MCV 90.8 (80-100) fL MCH 30.4 (26-34) PG MCHC 33.5 (30-36) % RDW 14.0 (11.6-14.8) % Plt Count 176 (150-400) X10^3/uL Neut % (Auto) 62.8 (50-75) % Lymph % (Auto) 27.3 (25-40) % Emmons % (Auto) 7.9 (3-14) % Eos % (Auto) 1.2 L (2-4) % Baso % (Auto) 0.8 (0-2) % Neut # (Auto) 4300 (0403-6559) /uL Lymph # (Auto) 1900 (5439-8338) /uL Emmons # (Auto) 500 (0-900) /uL Eos # (Auto) 100 (0-450) /uL Baso # (Auto) 100 (0-100) /uL PT 12.1 (9.4-12.5) SECONDS INR 1.1 (0.9-1.3) APTT 39 H (25.1-36.5) SECONDS Sodium 138 (137-145) mmol/L Potassium 3.9 (3.4-5.1) mmol/L Chloride 105 (98-107) mmol/L Carbon Dioxide 28 (22-32) mmol/L BUN 15 (7-17) mg/dL Creatinine 0.76 (0.52-1.04) mg/dL Estimated GFR > 60 (>60) mL/min BUN/Creatinine Ratio 19.7 (6-22) Glucose 114 H (70-99) mg/dL Calcium 9.4 (8.4-10.2) mg/dL Total Bilirubin 0.4 (0.2-1.3) mg/dL AST 31 (14-36) IU/L ALT 12 (<35) IU/L Alkaline Phosphatase 69 (38-126) U/L Total Creatine Kinase 83 (30-135) U/L Troponin I 0.019 (0.01-0.034) ng/mL NT-Pro-B Natriuret Pep 66 (<125) pg/mL Total Protein 7.1 (6.3-8.2) g/dL Albumin 4.2 (3.5-5.0) g/dL Globulin 2.9 (1.7-4.1) g/dL Albumin/Globulin Ratio 1.4 (1.0-2.8) MDM Narrative Medical decision making narrative: 69-year-old female with past medical history hypertension, Parkinson's disease presents to the ED with 2 weeks of sternal pain. Concern for sternal fracture versus rib fractures versus chest contusion versus ACS versus other. Will obtain EKG, chest x-ray, labs, troponin, BNP. Will give Toradol, Tylenol for pain relief. EKG is normal sinus rhythm. No acute ST-T changes. Troponin, BNP with a normal limits. Labs within normal limits. CT chest without also obtained. CT chest shows minimally displaced fracture of the sternum just below the sternomanubrial joint with mild surrounding edema. Chest x-ray shows minimally displaced sternal fracture below the level of the sternomanubrial joint. Patient's pain is currently well controlled. Will consult Trauma. Will reassess. Dr. Benitez from [facility] trauma was consulted. Given that patient has a minimally displaced sternal fracture, she deems patient safe for discharge with pain control. No surgical interventions indicated. Discussed findings and plan with patient. Patient had good pain relief with Toradol and Tylenol. Recommend continuing ibuprofen, Tylenol at home for pain control. Recommend follow-up with PCP. ED return precautions were discussed with patient. Patient verbalized understanding. Medical records reviewed: Yes <Cooper Pryor MD - Last Filed: 01/12/25 18:56> Lab Data Labs: Lab Results 01/12/25 Range/Units 15:30 WBC 6.8 (4.5-11.0) X10^3/uL RBC 4.68 (4.0-5.2) X10^6/uL Hgb 14.2 (12.0-16.0) g/dL Hct 42.5 (36-46) % MCV 90.8 (80-100) fL MCH 30.4 (26-34) PG MCHC 33.5 (30-36) % RDW 14.0 (11.6-14.8) % Plt Count 176 (150-400) X10^3/uL Neut % (Auto) 62.8 (50-75) % Lymph % (Auto) 27.3 (25-40) % Emmons % (Auto) 7.9 (3-14) % Eos % (Auto) 1.2 L (2-4) % Baso % (Auto) 0.8 (0-2) % Neut # (Auto) 4300 (5079-3686) /uL Lymph # (Auto) 1900 (6341-1261) /uL Emmons # (Auto) 500 (0-900) /uL Eos # (Auto) 100 (0-450) /uL Baso # (Auto) 100 (0-100) /uL PT 12.1 (9.4-12.5) SECONDS INR 1.1 (0.9-1.3) APTT 39 H (25.1-36.5) SECONDS Sodium 138 (137-145) mmol/L Potassium 3.9 (3.4-5.1) mmol/L Chloride 105 (98-107) mmol/L Carbon Dioxide 28 (22-32) mmol/L BUN 15 (7-17) mg/dL Creatinine 0.76 (0.52-1.04) mg/dL Estimated GFR > 60 (>60) mL/min BUN/Creatinine Ratio 19.7 (6-22) Glucose 114 H (70-99) mg/dL Calcium 9.4 (8.4-10.2) mg/dL Total Bilirubin 0.4 (0.2-1.3) mg/dL AST 31 (14-36) IU/L ALT 12 (<35) IU/L Alkaline Phosphatase 69 (38-126) U/L Total Creatine Kinase 83 (30-135) U/L Troponin I 0.019 (0.01-0.034) ng/mL NT-Pro-B Natriuret Pep 66 (<125) pg/mL Total Protein 7.1 (6.3-8.2) g/dL Albumin 4.2 (3.5-5.0) g/dL Globulin 2.9 (1.7-4.1) g/dL Albumin/Globulin Ratio 1.4 (1.0-2.8) Discharge Plan Departure Patient Disposition: Home Clinical Impression: Sternal fracture Qualifiers: Encounter type: initial encounter Sternal location: body of sternum Fracture type: closed Qualified Code(s): S22.22XA - Fracture of body of sternum, initial encounter for closed fracture Instructions: DI for Sternum Fracture Activity Restrictions/Additional Instructions: You were evaluated in the emergency department today for chest pain. Your CT scan showed a minimally displaced fracture of the sternum. We consulted the [facility] trauma team, they advise pain control. No other interventions are indicated at this time. You were given some ketorolac and Tylenol in the ED today with good pain relief. You may continue to take 600 mg of ibuprofen every 8 hours with food. You may also take 1000 mg of Tylenol every 8 hours. Please follow-up with your PCP as soon as possible. Return to the ED if you have worsening symptoms, trouble breathing. Prescriptions: No Action levothyroxine [Synthroid] 50 MCG tablet 0.05 mg PO QDAY Qty: 0 liothyronine [Cytomel] 25 MCG tablet 25 mcg PO DAILY Qty: 0 carbidopa-levodopa 25-100 mg tablet extended release 25 - 100 tab PO DAILY carbidopa-levodopa 25-100 mg tablet 25 - 100 tab PO Q4HR cyanocobalamin (vitamin B-12) 1,000 mcg/mL solution 1,000 mcg IM QWEEK melatonin 3 mg capsule 3 mg PO BEDTIME PRN Homocysteine Formula 0.8-50-100 mg-mg-mcg tablet 1 tab PO DAILY ascorbic acid (vitamin C) 100 mg tablet 100 mg PO DAILY calcium carbonate [Calcium Antacid] 400 mg calcium (1,000 mg) tablet,chewable 400 mg PO DAILY coenzyme Q10 200 mg capsule 200 mg PO DAILY cholecalciferol (vitamin D3) 25 mcg (1,000 unit) capsule 25 mcg PO DAILY glutathione 500 mg capsule PO turmeric root extract 500 mg capsule 500 mg PO DAILY omega-3 fatty acids 1,000 mg capsule 1,000 mg PO DAILY Gemtesa 75 mg tablet 75 mg PO DAILY Qty: 30 12RF Referrals: Edith Moe MD [Primary Care Provider] - Stand Alone Forms: Patient Portal/API/Survey ED Sign-out <Cooper Pryor MD - Last Filed: 01/12/25 18:56> Cosign ED Attending Cosignature Attestation: I was immediately available in the department for consultation. This documentation has been reviewed and I agree with assessment and plan. Supervised by Cooper Pryor MD
[2025-01-12] MEDS: ACETAMINOPHEN 325 MG TABLET 975 MG PO (15:11)
[2025-01-12] MEDS: KETOROLAC 30 MG/ML VIAL IV (15:37)
[2025-01-12 15:54] LABS: Add Manual Diff / Slide Review NO; Basophils Absolute Auto 100 /uL (0-100); Basophils Percent Auto 0.8 % (0-2); Eosinophils Absolute Auto 100 /uL (0-450); Eosinophils Percent Auto 1.2 % (2-4); Hematocrit 42.5 % (36-46); Hemoglobin 14.2 g/dL (12.0-16.0); Lymphocytes Absolute Auto 1900 /uL (1100-4500); Lymphocytes Percent Auto 27.3 % (25-40); Mean Corpuscular HGB Conc 33.5 % (30-36); Mean Corpuscular Hemoglobin 30.4 PG (26-34); Mean Corpuscular Volume 90.8 fL (80-100); Monocytes Absolute Auto 500 /uL (0-900); Monocytes Percent Auto 7.9 % (3-14); Neutrophils Absolute Auto 4300 /uL (1500-7000); Neutrophils Percent Auto 62.8 % (50-75); Platelet Count 176 X10^3/uL (150-400); Red Blood Cell Count 4.68 X10^6/uL (4.0-5.2); White Blood Cell Count 6.8 X10^3/uL (4.5-11.0)
[2025-01-12 16:01] LABS: INR 1.1 (0.9-1.3); Prothrombin Time 12.1 SECONDS (9.4-12.5)
[2025-01-12 16:04] LABS: Alanine Aminotransferase 12 IU/L (<35); Albumin 4.2 g/dL (3.5-5.0); Albumin Globulin Ratio 1.4 (1.0-2.8); Alkaline Phosphatase 69 U/L (38-126); Aspartate Aminotransferase 31 IU/L (14-36); BUN Creatinine Ratio 19.7 (6-22); Bilirubin Total 0.4 mg/dL (0.2-1.3); Blood Urea Nitrogen 15 mg/dL (7-17); Calcium 9.4 mg/dL (8.4-10.2); Carbon Dioxide 28 mmol/L (22-32); Chloride 105 mmol/L (98-107); Creatine Kinase 83 U/L (30-135); Estimated Glomerular Filt Rate > 60 mL/min (>60); Globulin 2.9 g/dL (1.7-4.1); Glucose 114 mg/dL (70-99); HEMOLYSIS 21 (0-50); PTT Partial Thromboplastin Tim 39 SECONDS (25.1-36.5); Potassium 3.9 mmol/L (3.4-5.1); Sodium 138 mmol/L (137-145); Total Protein 7.1 g/dL (6.3-8.2)
[2025-01-12 16:16] LABS: NT-proBNP (BNP-Adult 18+) 66 pg/mL (<125); Troponin I 0.019 ng/mL (0.01-0.034)
== END 2025-01-12 18:54 | disposition home or self-care (01) ==
PROVIDERS: Emergency Provider Student in an Organized Health Care Education/Training Program; PCP Internal Medicine
DX: S22.22XA Fracture of body of sternum, initial encounter for closed fracture (principal); W01.0XXA Fall on same level from slipping, tripping and stumbling without subsequent striking against object, initial encounter
CPT/HCPCS: 36415; 71046; 71250; 80053; 82550; 83880; 84484; 85025; 85610; 85730; 93005; 96374; 99284; J1885

== ENCOUNTER → 2025-07-27 14:11 | Outpatient (CLI) | payer MEDICARE, OTHER, SELFPAY ==
--- NOTE | 2025-07-27 14:13 | DI.RAD.S_ITS ---
PROCEDURE: XR DEXA AXIAL SKELETON INDICATIONS: F/U COMPARISON: [facility], , XR DEXA AXIAL SKELETON, 07/31/2024, 13:01. FINDINGS: Lumbar Spine: Bone mineral density is 1.033 g/cm2, T score -0.1. There is interval 1.8% decrease in total lumbar spine bone mineral density. Left Femoral Neck: Bone mineral density 0.722 g/cm2, T score -1.1. There is interval 8.6% increase in left femoral neck bone mineral density. Left Hip: Bone mineral density 0.825 g/cm2, T score -1.0. There is interval 1.4% decrease in left total hip bone mineral density. Fracture Risk Calculation (when applicable): 10-year fracture risk of a major osteoporotic fracture 14 percent and of a hip fracture 1.6 percent. (T score greater or equal to -1.0 to: NORMAL) (T score from -1.1 to -2.4: OSTEOPENIA) (T score less than or equal to -2.5: OSTEOPOROSIS) IMPRESSION: Osteopenia as above. Follow-up guidelines as follows: Osteoporosis: Consider a repeat DEXA and Vertebral Fracture Assessment (VFA) exam in 2 years or sooner if medically necessary, to reassess this patient's status. Osteopenia: Consider a repeat DEXA in 2-3 years to reassess this patient's status, or if there is a new clinical indication. Normal: Consider a repeat DEXA in 5 years or sooner, or if there is a new clinical indication. All treatment decisions require clinical judgment and consideration of individual patient factors, including patient preferences, comorbidities, previous drug use, risk factors not captured in the FRAX model (e.g., frailty, falls, vitamin D deficiency, increased bone turnover, interval significant decline in bone density ) and possible under- or over-estimation of fracture risk by FRAX. In addition, the NOF Guide recommends that FDA-approved medical therapies be considered in postmenopausal women and men age >= 50 years with a: * Hip or vertebral (clinical or morphometric) fracture * T-score of <=-2.5 at the spine or hip * Ten-year fracture probability by FRAX of >= 3% for hip fracture or >=20% for major osteoporotic fracture. Dictated by: Dionte Dickens M.D. on 07/27/2025 at 16:14 Approved by: Dionte Dickens M.D. on 07/27/2025 at 16:15
== END ==
LOC: RAD 14:13
PROVIDERS: PCP Internal Medicine; Referring Provider Internal Medicine; Visit Provider Internal Medicine
DX: M85.852 Other specified disorders of bone density and structure, left thigh (principal); Z78.0 Asymptomatic menopausal state
CPT/HCPCS: 77080